=== PATIENT | female | born 1985 | race Hispanic/Latino ===

== ENCOUNTER 2017-11-25 21:44 | Emergency (ER) | payer OTHER ==
[~2017-11-25] VITALS: Ht 160 cm; Wt 90.7 kg
[2017-11-25 21:51] VITALS: BP 118/75
--- NOTE | 2017-11-25 22:52 | RADIOLOGY REPORT ---
EXAMINATION: XR TIBIA AND FIBULA, LEFT CLINICAL INFORMATION: Fall. COMPARISON: None TECHNIQUE: AP and lateral views of the left tibia and fibula were obtained. FINDINGS: The bones and soft tissues are normal. No fracture. No osseous lesions. IMPRESSION: Normal left tibia and fibula.
--- NOTE | 2017-11-25 22:53 | RADIOLOGY REPORT ---
EXAMINATION: XR ELBOW, LEFT CLINICAL INFORMATION: Fall. COMPARISON: None TECHNIQUE: AP, lateral, and oblique views of the left elbow. FINDINGS: The bones and soft tissues are normal. No fracture or joint effusion. Alignment is anatomic. Joint spaces are maintained. IMPRESSION: Normal left elbow.
--- NOTE | 2017-11-25 22:53 | RADIOLOGY REPORT ---
EXAMINATION: XR ELBOW, RIGHT CLINICAL INFORMATION: Fall. COMPARISON: None TECHNIQUE: AP, lateral, and oblique views of the right elbow. FINDINGS: The bones and soft tissues are normal. No fracture or joint effusion. Alignment is anatomic. Joint spaces are maintained. IMPRESSION: Normal right elbow.
[2017-11-26] MEDS ORDERED: NAPROSYN500 M1 PO (00:22)
--- NOTE | 2017-11-26 00:23 | ED GENERAL ADULT ---
History of Present Illness General Chief Complaint: Lower Extremity Injury Stated Complaint: LEFT LEG PAIN FALL SATURDAY Source: patient Exam Limitations: no limitations Vital Signs & Intake/Output Vital Signs & Intake/Output Vital Signs Date Time Temp Pulse Resp B/P B/P Pulse O2 O2 Flow FiO2 Mean Ox Delivery Rate 11/25 2151 98.2 71 18 118/75 97 Room Air ED Intake and Output 11/26 0000 11/25 1200 Intake Total Output Total Balance Patient 200 lb Weight Weight Reported by Patient Measurement Method Allergies Coded Allergies: No Known Allergies (11/25/17) Reconcile Medications Naproxen (Naprosyn) 500 MG TABLET 1 TAB PO BID PRN pain Triage Note: PT TRIPPED AND FELL DOWNSTAIR IN HER HOUSE. COMPLAINTS OF PAIN ON HER LEFT LOWER LEG AMD BILATERAL ELBOWS. Triage Nurses Notes Reviewed? yes Onset: Abrupt Duration: day(s): Timing: constant : No Patient currently breastfeeds: No HPI: 32-year-old otherwise healthy female presenting with left lower leg pain and bilateral elbow pain status post mechanical fall down 6-7 steps 2 nights ago. Patient states that she tripped and she was going down the steps and lost her balance. Denies head strike or LOC. Has been using Motrin and applying ice with some relief. Denies numbness or paresthesias. Last tetanus approximately one year ago. (Marie Rivers) Past History Travel History Traveled to [place] past 21 day No Medical History Any Pertinent Medical History? none Surgical History Surgical History: non-contributory Psychosocial History What is your primary language Dutch Tobacco Use: Never used Family History Hx Contributory? No (Marie Rivers) Review of Systems Review of Systems Constitutional: Reports: no symptoms. EENTM: Reports: no symptoms. Respiratory: Reports: no symptoms. Cardiovascular: Reports: no symptoms. GI: Reports: no symptoms. Genitourinary: Reports: no symptoms. Musculoskeletal: Reports: see HPI. Skin: Reports: no symptoms. Neurological/Psychological: Reports: no symptoms. Hematologic/Endocrine: Reports: no symptoms. Immunologic/Allergic: Reports: no symptoms. All Other Systems: Reviewed and Negative (Marie Rivers) Physical Exam Physical Exam General Appearance: well developed/nourished, no apparent distress, alert, awake , comfortable Head: atraumatic, normal appearance Eyes: Bilateral: normal appearance, PERRL, EOMI. Ears, Nose, Throat: normal ENT inspection Neck: normal inspection, full range of motion, no midline tenderness Respiratory: normal breath sounds, chest non-tender, lungs clear Cardiovascular: regular rate/rhythm Gastrointestinal: soft, non-tender Back: normal inspection, normal range of motion, no vertebral tenderness Extremities: normal range of motion, ecchymosis, edema, and abrasions to left anterior roldan, the left lower extremity is neurovascularly intact, patient is able to bear weight and ambulate with a steady gait. Small abrasions to bilateral elbows, but with unrestricted range of motion at the elbow joints, bilateral upper trapezius and neurovascularly intact. Neurologic/Psych: no motor/sensory deficits, awake, alert, oriented x 3, normal gait, normal mood/affect, welfare service aide II-XII nml as tested, cerebellar function intact. Skin: normal color, warm/dry Core Measures ACS in differential dx? No CVA/TIA Diagnosis: No Sepsis Present: No Sepsis Focused Exam Completed? No (Marie Rivers) Progress Differential Diagnoses I considered the following diagnoses in my evaluation of the patient: [Abrasions versus contusion versus fracture] Plan of Care: X-rays of the left tib/fib and bilateral elbows were unremarkable. Likely with contusions and abrasions. Given Rx naproxen for pain. Instructed to continue using ice. Counseled on supportive care and checked return precautions. Initial ED EKG: none (Marie Rivers) Departure Departure Disposition: HOME OR SELF CARE Condition: Stable Clinical Impression Primary Impression: Contusion of leg, left Secondary Impressions: Abrasion Referrals: Mahogany MARCANO,Myl (PCP) Additional Instructions: Naproxen as needed for pain. Apply ice 2-3 times daily. Follow-up with your primary care provider for reevaluation. Return to emergency department for any normal worsening symptoms. Departure Forms: Customer Survey General Discharge Information Prescriptions: Current Visit Scripts Naproxen (Naprosyn) 1 TAB PO BID PRN pain #60 TAB (Marie Rivers) PA/FLAVORING OIL FILTERER Co-Sign Statement Statement: ED Attending supervision documentation- [] I saw and evaluated the patient. I have also reviewed all the pertinent lab results and diagnostic results. I agree with the findings and the plan of care as documented in the PA's/FLAVORING OIL FILTERER's documentation. [x] I have reviewed the ED Record and agree with the PA's/FLAVORING OIL FILTERER's documentation. [] Additions or exceptions (if any) to the PAs/FLAVORING OIL FILTERER's note and plan are summarized below: [] (Silviano MARCANO,Ulisses Pink) Critical Care Note Critical Care Note Critical Care Time: non-applicable (Brian FARAH,Marie)
== END 2017-11-26 00:26 ==
LOC: ERH 21:44
DX: S80.12XA Contusion of left lower leg, initial encounter (principal); W10.8XXA Fall (on) (from) other stairs and steps, initial encounter; Y92.9 Unspecified place or not applicable; Y93.9 Activity, unspecified; M79.662 Pain in left lower leg; M25.522 Pain in left elbow; M25.521 Pain in right elbow
CPT/HCPCS: 73080-LT; 73080-RT; 73590-LT